=== PATIENT | female | born 1955 | race Caucasian/White ===

== ENCOUNTER 2017-07-16 12:55 | Inpatient (IN) | payer BC, OTHER ==
[~2017-07-16] VITALS: Ht 154.9 cm; Wt 88.5 kg
[2017-07-16 14:29] LABS: Basophils # (auto) 0.1 uL; Basophils % (auto) 1.7 % (0.0-2.0); Eosinophils # (auto) 0 uL; Eosinophils % (auto) 0.4 % (0.0-7.0); Hematocrit 45.5 % (36.0-46.0); Hemoglobin 16.1 g/dL (12.2-16.2); Lymphocytes # (auto) 0.5 uL; Mean Corpuscular Hemoglobin 36.6 pg (28.0-32.0); Mean Corpuscular Hgb Conc. 35.3 g/dL (32.0-36.0); Mean Corpuscular Volume 103.6 fL (80.0-100.0); Monocytes # (auto) 0.4 uL; Monocytes % (auto) 7.2 % (0.0-12.0); Neutrophils # (auto) 4.1 uL; Neutrophils % (auto) 81.7 % (37.0-80.0); Nucleated Red Blood Cells % 0.1 %; Platelet Count (auto) 89 10^3/uL (140-450); Red Blood Cells 4.39 10^6/uL (4.0-5.20); Red Cell Distribution Width 13.9 % (11.8-14.3)
[2017-07-16 14:51] LABS: Alanine Aminotransferase 30 U/L (13-56); Albumin 3.7 g/dL (3.4-5.0); Alkaline Phosphatase 162 U/L (45-117); Anion Gap 10 (5-15); Aspartate Aminotransferase 50 U/L (15-37); Bilirubin, Total 2.5 mg/dL (0.2-1.0); Blood Urea Nitrogen 8 mg/dL (7-18); Calcium 9.1 mg/dL (8.5-10.1); Carbon Dioxide 24 mmol/L (21-32); Chloride 105 mmol/L (98-107); GFR African American 138 mL/min; GFR Non-African American 114 mL/min; Glucose 116 mg/dL (74-106); Magnesium 1.8 mg/dL (1.6-2.6); Potassium 3.8 mmol/L (3.5-5.1); Sodium 139 mmol/L (136-145); Total Protein 8.2 g/dL (6.4-8.2)
[2017-07-16] MEDS ORDERED: ACETAMINOPHEN 325 MG TAB PO ONE ×2 (20:25→20:30)
[2017-07-16] MEDS ORDERED: methylPREDNISolone SOD SUCC 125 MG/2 ML VL IV ONE (21:30)
[2017-07-16] MEDS ORDERED: IPRATROPIUM BROM 0.5 MG/2.5ML INH SOL HHN ONE (21:30)
[2017-07-16] MEDS ORDERED: ALBUTEROL SULF 2.5 MG/0.5ML(0.5%) NEB SOLN HHN ONE (21:30)
[2017-07-16] MEDS ORDERED: cefTRIAXone 1GM/10ml IVPUSH 10 ML IV ONE (21:30)
[2017-07-16] MEDS ORDERED: cloNIDine HCL 0.1 MG TAB PO ONE (21:30)
[2017-07-16] MEDS ORDERED: MORPHINE SULFATE 4 MG/ML SYR/VIAL IV PRN (22:45)
[2017-07-16] MEDS ORDERED: IBUPROFEN 400 MG TAB PO PRN (22:45)
[2017-07-16] MEDS ORDERED: AZITHROMYCIN 500MG/ 250ML 250 ML IV ONE (22:45)
[2017-07-16] MEDS ORDERED: TEMAZEPAM 15 MG CAP PO PRN (22:45)
[2017-07-17] MEDS ORDERED: ALBUTEROL SULF 2.5 MG/0.5ML(0.5%) NEB SOLN ONE (00:08)
[2017-07-17] MEDS ORDERED: IPRATROPIUM BROM 0.5 MG/2.5ML INH SOL ONE (00:08)
[2017-07-17] MEDS: IPRATROPIUM BROM 0.5 MG/2.5ML INH SOL NEB SCH ×4 (00:15→20:18)
[2017-07-17] MEDS: ALBUTEROL SULF 2.5 MG/0.5ML(0.5%) NEB SOLN NEB SCH ×4 (00:15→20:18)
[2017-07-17 00:16] LABS: Basophils # (auto) 0 uL; Eosinophils # (auto) 0 uL; Hematocrit 40.9 % (36.0-46.0); Monocytes # (auto) 0.1 uL; Neutrophils # (auto) 3.6 uL; White Blood Cell 3.9 10^3/uL (4.4-10.8)
[2017-07-17 00:18] LABS: Basophils % (auto) 0.3 % (0.0-2.0); Hemoglobin 14.3 g/dL (12.2-16.2); Lymphocytes # (auto) 0.2 uL; Lymphocytes % (auto) 4.4 % (10.0-50.0); Mean Corpuscular Hemoglobin 36.3 pg (28.0-32.0); Mean Corpuscular Volume 103.9 fL (80.0-100.0); Monocytes % (auto) 3.6 % (0.0-12.0); Neutrophils % (auto) 91.7 % (37.0-80.0); Nucleated Red Blood Cells % 0.1 %; Platelet Count (auto) 69 10^3/uL (140-450); Red Blood Cells 3.94 10^6/uL (4.0-5.20); Red Cell Distribution Width 14.1 % (11.8-14.3)
[2017-07-17 00:27] LABS: BUN/Creatinine Ratio 18.5; Calcium 8.4 mg/dL (8.5-10.1); Potassium 3.8 mmol/L (3.5-5.1)
[2017-07-17] MEDS: traMADol HCL 50 MG TAB PO PRN ×3 (01:23→19:52)
[2017-07-17 05:00] VITALS: BP 141/77
[2017-07-17 07:50] VITALS: BP 141/77
[2017-07-17 08:08] LABS: Urine Bacteria FEW /hpf (None Seen); Urine Blood Negative /uL (Negative); Urine Mucus FEW (None Seen); Urine Specific Gravity 1.027 (1.001-1.035); Urine WBC 22 /hpf (0 - 5)
[2017-07-17] MEDS ORDERED: HYDROXYCHLOROQUINE SULFATE 200 MG TAB PO SCH (10:00)
[2017-07-17] MEDS: HYDROXYCHLOROQUINE SULFATE 200 MG TAB PO SCH ×2 (10:31→21:42)
[2017-07-17] MEDS: LOSARTAN POTASSIUM 50 MG TAB PO SCH (10:31)
[2017-07-17 13:00] VITALS: BP 144/77
[2017-07-17 17:00] VITALS: BP 156/91
[2017-07-17] MEDS ORDERED: AZITHROMYCIN 500MG/ 250ML 250 ML IV SCH (21:00)
[2017-07-17 22:00] VITALS: BP 161/85
[2017-07-18] MEDS: ALBUTEROL SULF 2.5 MG/0.5ML(0.5%) NEB SOLN NEB SCH ×3 (00:34→13:33)
[2017-07-18] MEDS: IPRATROPIUM BROM 0.5 MG/2.5ML INH SOL NEB SCH ×3 (00:34→13:33)
[2017-07-18 05:00] VITALS: BP 150/78
[2017-07-18 07:15] LABS: Basophils # (auto) 0 uL; Eosinophils # (auto) 0 uL; Monocytes # (auto) 0.4 uL; Nucleated Red Blood Cells % 0.2 %
[2017-07-18 07:17] LABS: Basophils % (auto) 0.8 % (0.0-2.0); Eosinophils % (auto) 0.1 % (0.0-7.0); Hematocrit 42.4 % (36.0-46.0); Hemoglobin 14.4 g/dL (12.2-16.2); Lymphocytes # (auto) 0.4 uL; Lymphocytes % (auto) 8.9 % (10.0-50.0); Mean Corpuscular Hgb Conc. 33.9 g/dL (32.0-36.0); Mean Corpuscular Volume 106.2 fL (80.0-100.0); Monocytes % (auto) 8.9 % (0.0-12.0); Neutrophils # (auto) 3.7 uL; Neutrophils % (auto) 81.3 % (37.0-80.0); Platelet Count (auto) 67 10^3/uL (140-450); Red Blood Cells 3.99 10^6/uL (4.0-5.20); Red Cell Distribution Width 14.4 % (11.8-14.3); White Blood Cell 4.6 10^3/uL (4.4-10.8)
[2017-07-18 08:18] LABS: Albumin 3.2 g/dL (3.4-5.0); Bilirubin, Total 1.4 mg/dL (0.2-1.0); Calcium 8.5 mg/dL (8.5-10.1); Magnesium 2.1 mg/dL (1.6-2.6); Phosphorus 3.1 mg/dL (2.5-4.90); Potassium 3.9 mmol/L (3.5-5.1); Total Protein 7.5 g/dL (6.4-8.2)
[2017-07-18 09:00] VITALS: BP 136/76
[2017-07-18] MEDS: traMADol HCL 50 MG TAB PO PRN (09:35)
[2017-07-18] MEDS: LOSARTAN POTASSIUM 50 MG TAB PO SCH (12:03)
[2017-07-18] MEDS: HYDROXYCHLOROQUINE SULFATE 200 MG TAB PO SCH (12:04)
[2017-07-18 13:00] VITALS: BP 144/77
[2017-07-18 16:53] VITALS: BP 144/77
[2017-07-18 17:41] VITALS: BP 136/76
[2017-07-18] MEDS ORDERED: AZITHROMYCIN 250 MG TAB PO SCH (20:00)
== END 2017-07-18 19:13 | disposition home or self-care (01) | DRG 689 ==
LOC: ER 13:10 → OVERFLOW 13:11 → WEST WING 07-17 00:20
PROVIDERS: ADMIT Nurse Practitioner Family; ATTEND Nurse Practitioner Family
DX: N39.0 Urinary tract infection, site not specified (principal); J10.08 Influenza due to other identified influenza virus with other specified pneumonia; D68.59 Other primary thrombophilia; J45.901 Unspecified asthma with (acute) exacerbation; D69.6 Thrombocytopenia, unspecified; Z90.710 Acquired absence of both cervix and uterus; E66.9 Obesity, unspecified; E78.5 Hyperlipidemia, unspecified; I10 Essential (primary) hypertension; M06.9 Rheumatoid arthritis, unspecified; M79.7 Fibromyalgia; Z82.49 Family history of ischemic heart disease and other diseases of the circulatory system; Z68.36 Body mass index [BMI] 36.0-36.9, adult
CPT/HCPCS: 36415; 71020; 80048; 80053; 81001; 82962; 83735; 83880; 84100; 84484; 85025; 87040; 87070; 87081; 87205; 87400; 93005; 94640; 94761; 96374; 96375